=== PATIENT | male | born 2005 | race Asian ===

== ENCOUNTER 2023-10-12 19:18 | Inpatient (IN) ==
[2023-10-12 21:04] LABS: ABS Eosinophils 0.5 10^3/uL (0.0-0.5); ABS Lymphocytes 1.5 10^3/uL (1.0-4.8); ABS Monocytes 0.5 10^3/uL (0.0-1.1); ABS Neutrophils 4.2 10^3/uL (1.5-7.6); Eosinophil % 7.7 %; Hematocrit 42.2 % (38-53); Hemoglobin 14.3 g/dL (13.2-16.3); Lymphocyte % 21.4 %; Mean Corpuscular Hgb Conc 33.7 g/dL (31-36); Mean Corpuscular Volume 91.8 fL (80-97); Mean Platelet Volume 6.8 fL (7.5-11.2); Platelet Count 271 10^3/uL (150-450); Red Cell Distribution Width 12.9 % (12-17); White Blood Count 6.8 10^3/uL (3.6-10.2)
[2023-10-12 21:23] LABS: ALT 18 U/L (7-52); AST 20 U/L (13-39); Albumin 4.2 g/dL (3.2-5.2); Albumin/Globulin Ratio 1.4 (1-3); Alkaline Phosphatase 84 U/L (35-149); Anion Gap 8 mmol/L (2-16); Blood Urea Nitrogen 18 mg/dL (6-24); CO2 Carbon Dioxide 28 mmol/L (22-32); Chloride 107 mmol/L (101-111); Creatinine, Serum 0.95 mg/dL (0.67-1.17); Glucose 96 mg/dL (70-100); Potassium 3.9 mmol/L (3.5-5.0); Sodium 143 mmol/L (135-145); Total Bilirubin 0.4 mg/dL (0.2-1.0); Total Protein 7.2 g/dL (6.4-8.9); eGFR CKD-EPI 117.5 (>60)
[2023-10-12 21:25] LABS: Urine Appearance Cloudy; Urine Bilirubin Negative (Negative); Urine Blood Negative (Negative); Urine Color Yellow; Urine Glucose Negative (Negative); Urine Ketones Negative (Negative); Urine Nitrite Negative (Negative); Urine Protein Negative (Negative); Urine Specific Gravity 1.026 (1.002-1.030); Urine Urobilinogen Negative (Negative)
[2023-10-12 21:44] LABS: Urine Benzodiazepine Screen None Detected (None Detect); Urine Cannabinoids Screen None Detected (None Detect); Urine Opiates Screen None Detected (None Detect)
[2023-10-12 22:06] LABS: TSH Ultra Thyroid Stim Horm 0.41 mcIU/mL (0.34-5.60)
[2023-10-12 22:41] LABS: Acetaminophen < 15 mcg/mL; Salicylate < 2.50 mg/dL (<30)
[2023-10-12 23:11] LABS: Alcohol, S < 13 mg/dL (<13)
[2023-10-13] MEDS ORDERED: Al Hydrox/Mg Hydrox/Simet LIQ 30 ML UDC PO PRN (01:24)
[2023-10-13 08:22] LABS: HDL Cholesterol 49.2 mg/dL
[2023-10-13] MEDS ORDERED: Vitamin THERAPEUTIC TAB PO SCH (09:00)
[2023-10-13 11:18] VITALS: BP 105/66
== END 2023-10-13 15:55 | disposition home or self-care (01) | DRG 882 ==
LOC: ED 19:18 → BSU 10-13 01:13
PROVIDERS: ADMIT Psychiatry & Neurology Psychiatry; ATTEND Psychiatry & Neurology Psychiatry